=== PATIENT | female | born 1995 | race Caucasian/White ===

== ENCOUNTER 2024-12-11 13:13 | Observation (INO) | payer OTHER ==
[~2024-12-11] VITALS: Ht 154.9 cm; Wt 55.8 kg
[2024-12-11] MEDS ORDERED: ADDE1TAB14 PO (13:32)
[2024-12-11] MEDS ORDERED: BUPR450T4 PO (13:32)
[2024-12-11] MEDS ORDERED: PROZ10CA11 PO (13:32)
[2024-12-11 16:16] LABS: BASO # 0.1 10^3/uL (0.0-0.2); BASO % 0.6 % (0.0-1.0); EOS # 0.2 10^3/uL (0.0-0.5); EOS % 2.8 % (0.0-3.0); LYMPH # 2.1 10^3/uL (1.5-5.0); LYMPH % 27.4 % (24.0-44.0); MONO # 0.6 10^3/uL (0.0-0.8); MONO % 7.1 % (2.0-8.0); NEUTROPHILS # 4.8 10^3/uL (1.5-8.5); NEUTROPHILS % 61.8 % (36.0-66.0); PLATELET COUNT, AUTOMATED 338 10^3/uL (150-450)
[2024-12-11 16:26] LABS: ERYTHROCYTE SEDIMENTATION RATE 20 mm/hr (0-20)
[2024-12-11 16:29] LABS: KETONE, URINE AUTO RFX NEGATIVE (NEGATIVE); NITRITE, URINE AUTO RFX NEGATIVE (NEGATIVE); RBC, URINE AUTO RFX 0 /HPF (0-3); SQUAM EPITHELIAL CELL UR AURFX 2 /HPF (0-6); WBC, URINE AUTO RFX 0 /HPF (0-3)
[2024-12-11 16:31] LABS: LEUKOCYTE ESTERASE UR AUTO RFX TRACE (NEGATIVE)
[2024-12-11 16:50] LABS: ALT/SGPT 13 U/L (7.0-40); AST/SGOT 15 U/L (<34); C REACTIVE PROTEIN QUANTITATIV < 0.50 MG/DL (<1.0); CALCIUM LEVEL 9.5 MG/DL (8.5-10.1); CARBON DIOXIDE LEVEL 24 MMOL/L (20-31); CHLORIDE LEVEL 108 MMOL/L (98-107); CREATININE FOR GFR 0.55 MG/DL (0.55-1.30); GLOMERULAR FILTRATION RATE > 90.0 (>60); POTASSIUM SERUM 4.1 MMOL/L (3.5-5.1); SODIUM LEVEL 142 MMOL/L (136-145)
[2024-12-11] MEDS ORDERED: PROHANCE 279.3MG/ML 5ML VIAL As Ordered ONE (21:22)
[2024-12-11] MEDS: diphenhydrAMINE 50 MG/ML VIAL IV ONE (23:17)
[2024-12-11] MEDS ORDERED: BUPR-766 PO (23:46)
[2024-12-11] MEDS ORDERED: BUPR150T12 PO (23:46)
[2024-12-11] MEDS ORDERED: FLUO-365 PO (23:46)
[2024-12-11] MEDS ORDERED: HOME MED LIST COMPLETE! XX SCH (23:55)
[2024-12-12] MEDS ORDERED: ACETAMINOPHEN 325 MG TAB PO PRN (00:15)
[2024-12-12 04:45] VITALS: BP 129/63; TEMP 97.6; O2SAT 98
[2024-12-12] MEDS: cefTRIAXone SOD 1 GM in DEXTROSE 5% (D5W) ADV/MINI-BAG 50 ML IV SCH (05:23)
[2024-12-12 06:50] LABS: PLATELET COUNT, AUTOMATED 323 10^3/uL (150-450)
[2024-12-12 07:28] LABS: ALT/SGPT 14 U/L (7.0-40); AST/SGOT 17 U/L (<34); CALCIUM LEVEL 8.9 MG/DL (8.5-10.1); CARBON DIOXIDE LEVEL 24 MMOL/L (20-31); CHLORIDE LEVEL 106 MMOL/L (98-107); CREATININE FOR GFR 0.61 MG/DL (0.55-1.30); GLOMERULAR FILTRATION RATE > 90.0 (>60); POTASSIUM SERUM 4.2 MMOL/L (3.5-5.1); SODIUM LEVEL 141 MMOL/L (136-145)
[2024-12-12 08:42] VITALS: BP 115/52; TEMP 98.5; O2SAT 98
[2024-12-12] MEDS: FLUoxetine 20 MG CAP PO SCH (08:44)
[2024-12-12] MEDS: buPROPion **XL** 150 MG TABLET PO SCH ×2 (08:44)
[2024-12-12] MEDS: HEPARIN SOD 5000 UNITS/ML 1 ML VIAL/SYRINGE SC SCH (08:44)
[2024-12-12] MEDS: PANTOPRAZOLE 40MG VIAL IV SCH (08:44)
[2024-12-12] MEDS ORDERED: ISOVUE-370 76% 100 ML VIAL As Ordered ONE (11:14)
[2024-12-12] MEDS ORDERED: GASTROGRAFIN SOLUTION 30 ML As Ordered ONE (11:14)
== END 2024-12-12 16:14 | disposition home or self-care (01) ==
LOC: M ED 13:13 → M ED INP 13:14 → M MS4PR 12-12 04:50
PROVIDERS: ADMIT Student in an Organized Health Care Education/Training Program; ATTEND Internal Medicine
DX: R19.09 Other intra-abdominal and pelvic swelling, mass and lump (principal); R59.1 Generalized enlarged lymph nodes; N39.0 Urinary tract infection, site not specified; F90.9 Attention-deficit hyperactivity disorder, unspecified type; F41.9 Anxiety disorder, unspecified; F32.A Depression, unspecified; K21.9 Gastro-esophageal reflux disease without esophagitis; M54.50 Low back pain, unspecified; M79.89 Other specified soft tissue disorders; T36.95XA Adverse effect of unspecified systemic antibiotic, initial encounter; R00.0 Tachycardia, unspecified; Z98.891 History of uterine scar from previous surgery; Z98.82 Breast implant status; Z98.890 Other specified postprocedural states; Z79.899 Other long term (current) drug therapy
CPT/HCPCS: 36415; 74177; 74181; 74182; 80053; 81001; 83605; 83690; 85025; 85027; 85652; 86140; 87086; 96374; 96375; 99284; A9576; J0696; J1200; J2470; Q9963; Q9967